=== PATIENT | female | born 1960 | race Two or more races ===

== ENCOUNTER 2017-12-11 07:49 | Day surgery (SDC) | payer BC ==
[2017-12-05 10:46] VITALS: BMI 25.9
[~2017-12-11 07:49] MED LIST: LACTATED RINGERS 1,000 ML IV SCH
[2017-12-11 08:08] VITALS: TEMP 98.1
[2017-12-11] MEDS ORDERED: LIDOCAINE 1% 20 ML VIAL (10MG/ML) FOR IV START INTRADERMA ONE (08:09)
[2017-12-11] MEDS ORDERED: GLUCAGON 1 MG/ML VIAL ONE (08:30)
[2017-12-11] MEDS ORDERED: LIDOCAINE 1% INJ 10MG/ML (20 ML MDV) ONE (08:30)
[2017-12-11] MEDS ORDERED: PROPOFOL 10 MG/ML 20 ML VIAL IV ONE (08:30)
--- NOTE | 2017-12-11 08:37 | P.GSHP ---
History of Present Illness H&P Date: 12/11/17 Chief Complaint: Screening colonoscopy This is a 57-year-old female referred from Dr. Jose Robledo. Patient presents today for screening colonoscopy. She denies a significant GI complaints. Past Medical History Past Medical History: CVA/TIA, Deep Vein Thrombosis (DVT), GERD/Reflux Additional Past Medical History / Comment(s): since cva pt states on and off has difficulty forming words,. states was told by dr that bladder had dropped and weakened states occasional bladder leakage History of Any Multi-Drug Resistant Organisms: None Reported Past Surgical History: Tubal Ligation Additional Past Surgical History / Comment(s): cyst on ovary ruptured with surgery requiring 6 pints of blood, Past Anesthesia/Blood Transfusion Reactions: No Reported Reaction Past Psychological History: No Psychological Hx Reported Smoking Status: Never smoker Past Alcohol Use History: None Reported Past Drug Use History: Marijuana Additional Drug Use History / Comment(s): on occasion - Past Family History Mother Family Medical History: No Reported History Medications and Allergies Home Medications Medication Instructions Recorded Confirmed Type Aspirin 325 mg PO DAILY 12/05/17 12/05/17 History Atorvastatin [Lipitor] 40 mg PO HS 12/05/17 12/05/17 History Allergies Allergy/AdvReac Type Severity Reaction Status Date / Time No Known Allergies Allergy Verified 12/11/17 07:57 Surgical - Exam Vital Signs Temp Pulse Resp BP Pulse Ox 98.1 F 81 16 129/72 96 12/11/17 08:05 12/11/17 08:05 12/11/17 08:05 12/11/17 08:05 12/11/17 08:05 - General well developed, no distress - Eyes PERRL - ENT normal pinna - Neck no masses - Respiratory normal expansion - Cardiovascular Rhythm: regular - Abdomen Abdomen: soft, non tender Assessment and Plan Assessment: We'll perform screening colonoscopy.
--- NOTE | 2017-12-11 08:52 | P.OP ---
Date of Procedure: 12/11/17 Preoperative Diagnosis: Screening colonoscopy Postoperative Diagnosis: Diverticulosis Procedure(s) Performed: Colonoscopy Anesthesia: MAC Surgeon: Giorgio Guevara Pathology: none sent Condition: stable Disposition: PACU Description of Procedure: The patient's placed on the endoscopy table in the lateral position. She received IV sedation. Digital rectal exam is performed which revealed external hemorrhoids. The flexible colonoscope was then placed patient anus and passed throughout the colon. Scope couldn't be passed beyond the splenic flexure secondary to tortuosity valve. Scope was withdrawn and in the descending and sigmoid: There is extensive diverticular changes. Scope was then brought back the rectum and this appeared normal. Scope was withdrawn for patient. Patient was scheduled for a barium enema.
[2017-12-11 09:19] VITALS: BP 117/74; PULSE 74; RESP 16
--- NOTE | 2017-12-15 07:35 | FL ---
EXAMINATION TYPE: FL barium enema DATE OF EXAM: 12/11/2017 CLINICAL HISTORY: 57-year-old female diverticulosis, incomplete colonoscopy, failed at the splenic fl ecture. TECHNIQUE: A double contrast barium enema study is performed. Total fluoroscopy time: 1 minute 53 seconds. Total images: 38 COMPARISON: None. FINDINGS: [employer] view of the abdomen shows non-obstructive bowel gas pattern. There is mild residual air within the colon. No evidence of any mass or polyp, obstructing or constricting lesion throughout the colon. There is moderate sigmoid diverticulosis and additional diverticulosis along the proximal third trans verse colon. The appendix was filled and appeared normal. The terminal ileum was refluxed and shows no gross abno rmality. IMPRESSION: Sigmoid and proximal transverse colon diverticulosis. Otherwise, no suspicious polyp or annular lesio n seen.
== END 2017-12-11 09:55 | disposition home or self-care (01) ==
LOC: ORWHC2ENDO 07:49
PROVIDERS: ATTEND Surgery
DX: Z12.11 Encounter for screening for malignant neoplasm of colon (principal); K57.30 Diverticulosis of large intestine without perforation or abscess without bleeding; Q43.8 Other specified congenital malformations of intestine; K64.4 Residual hemorrhoidal skin tags; K21.9 Gastro-esophageal reflux disease without esophagitis; I69.820 Aphasia following other cerebrovascular disease; Z86.718 Personal history of other venous thrombosis and embolism; Z79.82 Long term (current) use of aspirin; Z79.899 Other long term (current) drug therapy
CPT/HCPCS: 74270; 45330; J1610; J2001; J2704; 45378